=== PATIENT | female | born 1975 | race Caucasian/White ===

== ENCOUNTER 2020-03-31 05:28 | Outpatient (RCR) | payer OTHER ==
[~2020-03-31] VITALS: Ht 162.6 cm; Wt 104.1 kg
[~2020-03-31 05:28] MED LIST: DICL75TA2 PO; PANT40TA52 PO; SUCR1TAB PO; VENL150C98 PO
== END 2020-03-31 12:02 | disposition home or self-care (01) ==
LOC: PREOP 05:28
PROVIDERS: ATTEND Surgery
DX: Z01.812 Encounter for preprocedural laboratory examination (principal); Z20.828 Contact with and (suspected) exposure to other viral communicable diseases
CPT/HCPCS: 87635

== ENCOUNTER 2020-04-04 09:54 | Day surgery (SDC) | payer OTHER ==
[~2020-04-04] VITALS: Ht 162.6 cm; Wt 104.1 kg
[2020-04-04] VITALS (7 sets, daily range): BP systolic 85–175; BP diastolic 60–103
[2020-04-04] MEDS ORDERED: LACTATED RINGERS 1,000 ML IV PRN (10:00)
[2020-04-04] MEDS ORDERED: HURRICAINE EXT TUBE (BENZOCAINE) XX PRN (10:00)
[2020-04-04] MEDS ORDERED: LACTATED RINGERS 1,000 ML IV ONE (10:13)
[2020-04-04] MEDS ORDERED: MIDAZOLAM 2 MG/2 ML (VERSED) VIAL ONE (10:40)
[2020-04-04] MEDS ORDERED: PROPOFOL INJECTION 50 ML IV ONE ×2 (11:13→12:02)
[2020-04-04] MEDS ORDERED: HURRICAINE EXT TUBE (BENZOCAINE) ONE (11:24)
--- NOTE | 2020-04-04 12:37 | Progress Note-Post Operative ---
Post-Operative Progess Note Surgeon (s)/Residential Care Facility Manager (s) Surgeon DALE EDUARDO DO Residential Care Facility Manager: na Pre-Operative Diagnosis dysphagia gerd dark stools Post-Operative Diagnosis small hiatal hernia, normal colon Procedure & Operative Findings Date of Procedure 04/04/20 Procedure Performed/Findings egd c biopsies colonoscopy Anesthesia Type per credit risk officer Estimated Blood Loss Estimated blood loss (mL): none Specimens/Packing Specimens Removed antrum, ge DALE EDUARDO DO Apr 04, 2020 12:37
--- NOTE | 2020-04-04 12:39 | Discharge Inst-Simple/Standard ---
Discharge Inst-Standard Patient Instructions/Follow Up Plan of Care/Instructions/FU: 2 weeks Evelia Activity as Tolerated: Yes Discharge Diet: Regular Diet DALE EDUARDO DO Apr 04, 2020 12:39
--- NOTE | 2020-04-04 12:44 | Anesthesia-General Post-Op ---
MAC Patient Condition Mental Status/LOC: Same as Preop Cardiovascular: Satisfactory Nausea/Vomiting: Absent Respiratory: Satisfactory Pain: Controlled Complications: Absent Post Op Complications Complications None Follow Up Care/Instructions Patient Instructions None needed. Anesthesiology Discharge Order Discharge Order Patient is doing well, no complaints, stable vital signs, no apparent adverse anesthesia problems. No complications reported per nursing. ATILIO WADE CRNA Apr 04, 2020 12:44
--- NOTE | 2020-04-04 18:36 | OPERATIVE REPORT ---
DATE OF SERVICE: 04/04/2020 PREOPERATIVE DIAGNOSES: Dysphagia, gastroesophageal reflux disease and dark stools. POSTOPERATIVE DIAGNOSES: Small hiatal hernia, normal colon. PROCEDURES PERFORMED: EGD with biopsies, colonoscopy. SURGEON: Dale Altamirano DO ANESTHESIA: Per APPARATUS LINEMAN. ESTIMATED BLOOD LOSS: None. COMPLICATIONS: None. SPECIMENS: Antrum, GE junction. INDICATIONS: The patient is a 44-year-old female with dysphagia, reflux and been having dark stools. She understands risks and benefits of the procedure and wished to proceed with the procedures. Consent was signed in the chart. DESCRIPTION OF PROCEDURE: The patient was taken to the endoscopy suite and placed in a left lateral recumbent position. Timeout was performed. Scope was inserted in the mouth, down the esophagus, stomach and into the duodenum without difficulty. There were no polyps, masses or ulcerations. Scope was then slowly retracted back into the stomach where it was further insufflated. No polyps, masses or ulcerations. Biopsy of the antrum was obtained. Scope was retroflexed noting a small hiatal hernia and no other pathology. Scope was returned to its normal position, slowly withdrawn to distal esophagus. Biopsy of the GE junction was obtained. Scope was slowly retracted back until completely removed noting no other pathology. Digital rectal exam was performed. There were no palpable polyps, masses or ulcerations. Scope was inserted in the rectum and advanced all the way to cecum with minimal difficulty. Prep was adequate. Scope was then slowly retracted back. There were no polyps, masses or ulcerations within the cecum, ascending, transverse, descending and sigmoid colon. Once in the rectum, scope was retroflexed noting no other pathology. Scope was then returned to its normal position, slowly withdrawn until completely removed. The patient tolerated the procedure well without any complications. She was taken to the recovery room in stable condition. RECOMMENDATIONS: Continue current medications. Follow up on biopsy results. Further recommendations pending biopsies. The patient will need repeat colonoscopy in 10 years unless family history of colon cancer, which would then be 5 years. Any issues before that be seen at that time. Job ID: [id number] DocumentID: [id number] Dictated Date: 04/04/2020 12:42:23 Beauty Culture Teacher Date: 04/04/2020 18:36:15 Dictated By: DALE ALTAMIRANO DO
== END 2020-04-04 13:20 | disposition home or self-care (01) ==
LOC: ENDO 09:54
PROVIDERS: ATTEND Surgery
DX: K21.00 Gastro-esophageal reflux disease with esophagitis, without bleeding (principal); K44.9 Diaphragmatic hernia without obstruction or gangrene; R19.5 Other fecal abnormalities; G43.909 Migraine, unspecified, not intractable, without status migrainosus; G62.9 Polyneuropathy, unspecified; E66.9 Obesity, unspecified; Z68.39 Body mass index [BMI] 39.0-39.9, adult; F17.210 Nicotine dependence, cigarettes, uncomplicated; Z79.899 Other long term (current) drug therapy; Z86.010 Personal history of colon polyps; Z90.710 Acquired absence of both cervix and uterus
CPT/HCPCS: 88305